=== PATIENT | female | born 1945 ===

== ENCOUNTER 2021-05-14 09:32 | Outpatient (CLI) | payer OTHER | END 2021-05-14 09:34 | disposition home or self-care (01) | LOC: SONOGRAMA 09:32 | PROVIDERS: ATTEND Pathology Anatomic Pathology & Clinical Pathology | DX: E04.2 Nontoxic multinodular goiter (principal); D34 Benign neoplasm of thyroid gland; E04.8 Other specified nontoxic goiter ==